=== PATIENT | female | born 1935 ===

== ENCOUNTER 2017-10-14 10:21 | Emergency (ER) | payer OTHER ==
[~2017-10-14] VITALS: Ht 172.7 cm; Wt 90.7 kg
[~2017-10-14 10:21] MED LIST: ACET325 PO; ALBU90OI INH; AMLO5 PO; AMLODIPINE; ANTACID-ANTIGA1 EACH PO; BISA10S PR; CHOL10002 PO; CLOP75 PO; DEEP BLUE RELI PO; DOCU100 PO; ELIQUIS5 MG PO; EMERGEN-C 1,01000 MG PO; ESCI10 PO; FIBER SMOOTH PO; FURO20 PO; FURO80 PO; Halls Cough Dr1 EACH MM; K-Dur20 MEQ PO; LEVFLO500 PO; LEVO750 PO; LEVOTHYROID; LEVSOD50 PO; LISI20 PO; LOPE2C PO; METO100ER PO; Milk Of Ma400 MG/5 M PO; POTA10T PO; SODCHL1 PO
[2017-10-14] MEDS ORDERED: SODCHL1 PO (10:42)
[2017-10-14] MEDS ORDERED: LIDO700A20 TOP (12:48)
== END 2017-10-14 13:07 | disposition home or self-care (01) ==
LOC: ER 10:21
DX: S30.0XXA Contusion of lower back and pelvis, initial encounter (principal); I11.0 Hypertensive heart disease with heart failure; I50.9 Heart failure, unspecified; I48.91 Unspecified atrial fibrillation; Z86.73 Personal history of transient ischemic attack (TIA), and cerebral infarction without residual deficits; Z90.49 Acquired absence of other specified parts of digestive tract; Z88.6 Allergy status to analgesic agent; Z79.899 Other long term (current) drug therapy; W19.XXXA Unspecified fall, initial encounter
CPT/HCPCS: 72170; 73562-RT; 99283

== ENCOUNTER 2018-10-05 06:25 | Emergency (ER) | payer OTHER ==
[~2018-10-05] VITALS: Ht 175.3 cm; Wt 102.1 kg
[~2018-10-05 06:25] MED LIST changes: +LIDO700A20 TOP
[2018-10-05 06:49] LABS: BASOPHILS ABSOLUTE AUTO 0.04 K/mm3 (0.00-0.23); BASOPHILS PERCENT AUTO 1 % (0-2); EOSINOPHILS ABSOLUTE AUTO 0.14 K/mm3 (0.00-0.68); EOSINOPHILS PERCENT AUTO 2 % (0-6); Hematocrit 40.4 % (33.0-51.0); Hemoglobin 12.8 g/dL (11.5-16.0); IMMATURE GRAN ABSOLUTE AUTO 0.04 K/mm3 (0.00-0.10); IMMATURE GRAN PERCENT AUTO 1 % (0-1); LYMPHOCYTES ABSOLUTE AUTO 1.04 K/mm3 (0.84-5.20); LYMPHOCYTES PERCENT AUTO 14 % (21-46); MONOCYTES ABSOLUTE AUTO 0.46 K/mm3 (0.16-1.47); MONOCYTES PERCENT AUTO 6 % (4-13); Mean Corpuscular HGB 31.1 pg (26.0-34.0); Mean Corpuscular HGB Conc 31.7 g/dL (31.5-36.5); Mean Corpuscular Volume 98 fL (80-100); Mean Platelet Volume 9.1 fL (9.1-12.4); NEUTROPHILS ABSOLUTE AUTO 5.81 K/mm3 (1.96-9.15); NEUTROPHILS PERCENT AUTO 77 % (41-73); Platelet Count 258 K/mm3 (150-400); RDW Coefficient Variation 12.2 % (11.7-14.2); RDW Standard Deviation 44.2 fL (35.1-46.3); Red Blood Cell Count 4.12 M/mm3 (3.80-5.20); White Blood Cell Count 7.53 K/mm3 (4.00-11.30)
[2018-10-05 07:14] LABS: Alanine Aminotransfer (ALT/SGP 48 U/L (12-78); Albumin, Blood 3.3 g/dL (3.4-5.0); Albumin/Globulin Ratio 0.8 (0.8-1.8); Alk Phos 135 U/L (50-136); Anion Gap 14 mmol/L (6-16); Aspartate Aminotrans (AST/SGOT 77 U/L (12-37); Bilirubin, Total 0.6 mg/dL (0.1-1.0); Blood Urea Nitrogen 16 mg/dL (8-24); Bun/Creatinine Ratio 17.4 (12.0-20.0); CO2, Blood 22 mmol/L (21-32); Chloride, Blood 103 mmol/L (98-108); Creatinine, Blood 0.92 mg/dL (0.40-1.00); Globulin, Blood 3.9 g/dL (2.2-4.0); Glomerular Filtration Rate >60 (60-); Glucose, Blood 181 mg/dL (70-99); Potassium, Blood 3.4 mmol/L (3.5-5.5); Sodium, Blood 139 mmol/L (136-145); Total Protein, Blood 7.2 g/dL (6.4-8.2); Troponin I 0.037 ng/mL (0.000-0.040)
--- NOTE | 2018-10-05 08:29 | NUR ---
Call back - Pt's daughter Caitlin and GD were present. Another family member entered at a later time. Family given space to reflect on the pt's life, values, and children. Verbal prayer was offered on behalf of the pt's family. Family appeared to be coping appropriately - tearful at times, then sharing humorous stories. GOLDIE works for [employer]. Family began to make calls to family. Good family support and many family members. Family verbalized gratitude for the interventions.
== END 2018-10-05 07:30 ==
LOC: ER 06:25
PROVIDERS: Emergency Medicine
DX: G93.40 Encephalopathy, unspecified (principal); Z88.8 Allergy status to other drugs, medicaments and biological substances; Z79.899 Other long term (current) drug therapy; I11.0 Hypertensive heart disease with heart failure; I50.9 Heart failure, unspecified; I48.91 Unspecified atrial fibrillation; Z90.49 Acquired absence of other specified parts of digestive tract
CPT/HCPCS: 36415; 70450; 80053; 83880; 84484; 85025; 93005; 93010; 94002; 99291-25